=== PATIENT | female | born 1960 | race Caucasian/White ===

== ENCOUNTER 2018-08-09 07:41 | Inpatient (IN) ==
[2018-08-09] MEDS ORDERED: CeFAZolin Syr 2,000MG/20 ML 2,000 MG/20 ML SYRINGE IVPB ONE (08:16)
[2018-08-09] MEDS ORDERED: Albuterol 2.5 MG/3 ML NEBULIZER IH ONE (08:28)
--- NOTE | 2018-08-09 08:28 | Anesthesia Evaluation PreOp ---
Date of Encounter: 08/09/18 Time of Encounter: 08:26 - Past History Planned Operation: Right Mastectomy Cardiac History: HTN Pulmonary History: Former smoker (quit 1 year ago, smoked for 40 years--uses E- cigs) ACCOUNTING GENERALIST History: Denies Any Significant HX Other Medical History: Other (breast CA) Anesthesia History: No Prior Anesthetic Complications, Past Anesthesia Alcohol Use: rarely Drug use: none Medications and Allergies Calcium Carbonate/Vitamin D3 [Calcium 500 + Vit D Caplet] 1 each PO BID #60 tablet 03/03/18 [Rx] LORazepam [Ativan] 1 mg PO Q12H PRN 03/03/18 [History] Lisinopril 2.5 mg PO DAILY 03/16/18 [History] Multivitamin [Multivitamins] 1 each PO DAILY 06/23/18 [History] Anastrozole [Arimidex] 1 mg PO DAILY 90 Days #90 tablet 07/04/18 [Rx] Acetaminophen [Tylenol] 325 mg PO Q6HR PRN 08/09/18 [History] Oxycodone HCl/Acetaminophen [Percocet 7.5-325 mg Tablet] 1 each PO Q6H PRN 08/09/18 [History] Allergy/AdvReac Type Severity Reaction Status Date / Time No Known Allergies Allergy Verified 08/09/18 08:47 - Meds/Allergy Pre-op Review Medications Reviewed: Yes Allergies Reviewed: Yes Beta Blockers on Current Med List: No Anesthesia Results - Imaging EKG: report reviewed (06/30/2018 SINUS RHYTHM POSSIBLE LEFT ATRIAL ENLARGEMENT) Anesthesia Exam O2 Sat Height 1.65 m Height 1.65 m Weight 51.71 kg Weight 51.71 kg O2 Sat by Pulse Oximetry 93 Vital Signs Temp Pulse Resp BP Pulse Ox 97.6 F 65 18 129/83 93 08/09/18 08:50 08/09/18 08:50 08/09/18 08:50 08/09/18 08:50 08/09/18 08:50 Height: 5'5'' Weight: 114 lbs NPO (# of Hours): 8 Pain Scale: 0 Pain Scale Used: Numeric (1 - 10) - HEENT Pupil (Motor): EOMI Mallampati: II Teeth: Poor dentition Oral Opening: Greater than 3 - ACCOUNTING GENERALIST LOC: Oriented ACCOUNTING GENERALIST Motor: Normal RUE, Normal LUE, Normal RLE, Normal LLE, Normal Face ACCOUNTING GENERALIST Sensory: Normal: LUE, RLE, LLE, Face, Deficit: RUE - Cardiac Rhythm: Regular Murmur: None - Pulmonary Breath Sounds: bilateral Clear Respiratory Effort: Symmetrical Anesthesia Assess/Plan ASA Score: 3 Level of consciousness: Cooperative, Oriented, Tranquil Anesthetic Plan: General Monitoring Plan: Standard Monitors Recovery Plan: PACU
[2018-08-09] MEDS ORDERED: Albuterol 2.5 MG/3 ML NEBULIZER ONE (08:30)
[2018-08-09] MEDS ORDERED: Ringers Solution, Lactated 1,000 ML IVC SCH (08:30)
--- NOTE | 2018-08-09 08:47 | History & Physical Report ---
Date of Encounter: 08/09/18 Time of Encounter: 08:47 24 Hour HP Update - Instructions Instructions: If the History and Physical is less than 30 days old and was completed prior to A.M. admission and or procedure and has NOT been updated on calendar day of procedure please complete this update prior to performing procedure. - Update Patient reports changes in Medical Condition: No Changes in examination, assessment, or condition: No Changes in Medication: No Preop tests/diagnostics Reviewed: Yes Pre-Op MRSA Screen: Negative Surgery Remains Indicated: Yes Consent for Planned Operative Procedure(s) Verified: Yes - Pre-Operative Checklist Preoperative Checklist Indicated: No Prophylactic Antibiotic Ordered: Yes Home Medications Include Beta Jose: No Beta Jose Taken Today (Day of Surgery): No Beta Jose Taken Yesterday (Day Prior to Surgery): No Is VTE Prophylaxis Indicated?: NO
[2018-08-09] MEDS ORDERED: Scopolamine Patch 1.5 MG PATCH.TD72 TD ONE (09:20)
[2018-08-09] MEDS ORDERED: Dexamethasone 4 MG/ML VIAL ONE (09:54)
[2018-08-09] MEDS ORDERED: Lidocaine -MPF 2% 2 ML VIAL ONE (09:54)
[2018-08-09] MEDS ORDERED: *HR* Midazolam HCl 2 MG/2 ML VIAL ONE (09:54)
[2018-08-09] MEDS ORDERED: *HR* Rocuronium Bromide 50 MG/5 ML VIAL ONE (09:54)
[2018-08-09] MEDS ORDERED: Ondansetron 4 MG/2 ML VIAL ONE (09:54)
[2018-08-09] MEDS ORDERED: *HR* Propofol 200 MG/20 ML VIAL IVP ONE (09:54)
[2018-08-09] MEDS ORDERED: *HR* FentaNYL (PF) 100 MCG/2 ML VIAL ONE (09:54)
[2018-08-09] MEDS ORDERED: *HR* Promethazine 25 MG/ML VIAL IVP PRN (10:26)
[2018-08-09] MEDS ORDERED: *HR* HYDROmorphone (PF) 1 MG/ML SYRINGE IVP PRN (10:26)
[2018-08-09] MEDS ORDERED: *HR* OxyCODONE/APAP 5/325 TABLET PO PRN (10:26)
[2018-08-09] MEDS ORDERED: Ondansetron 4 MG/2 ML VIAL IVP ONE (10:26)
[2018-08-09] MEDS ORDERED: EPHEDrine 50 MG/ML VIAL ONE (10:33)
[2018-08-09] MEDS ORDERED: *HR* Vasopressin 20 UNIT/ML VIAL ONE (10:36)
--- NOTE | 2018-08-09 11:11 | Operative Note ---
Date of procedure: 08/09/18 Pre-op diagnosis: Right breast cancer, positive margins Post-op diagnosis: same Procedure: Completion right mastectomy Implants: 19 FR Jose x 1 Anesthesia: TARYNA Surgeon: Dayne Atkins Was there an social work assistant present: Yes Nitroglycerin Separator Operator: Candis Cordon Estimated blood loss (cc): 12 Specimen: right breast Condition: stable Disposition: PACU Procedure in Detail: Date of surgery: 08/09/18 After properly identifying the patient, the patient was brought to the operating room and placed in a supine position. After proper IV sedation was achieved followed by general endotracheal intubation, the patient's right breast and axilla were prepped and draped in normal sterile fashion. A timeout was performed noting the patient's name and type of procedure to be performed. Of note the patient had a prior partial mastectomy with excision of the nipple areolar complex, demonstrating residual 1.7 cm cancer with positive margin. Because of the original size of her cancer and her lymph node involvement the decision was made to go ahead and proceed with a mastectomy. A 10 blade scalpel was used to make a oval incision inclusive of the previous incision site extending from the anterior border of the axillary medially towards the sternum. Bovie cauterization was used to dissect down to the dermis and breast parenchyma. The breast parenchyma was then dissected away from the subcutaneous tissue superiorly up towards these clavicle, medially towards the sternum, inferiorly towards the rectus abdominis insertion on the rib cage, and laterally towards the axilla. Bovie cauterization was used to maintain hemostasis during this phase and after this was performed the breast parenchyma was dissected from medial to lateral off the pectoralis major muscle with Bovie cauterization. Once the breast tissue was excised it was cemented to pathology. Bovie cauterization was used to maintain hemostasis within the wound bed and a 10- Urdu Jose drain was placed within the wound and secured with a 2-0 nylon suture. The subcutaneous tissue was then reapproximated with interrupted 3-0 Vicryl sutures and the epidermal and dermal layers were reapproximated with a running 4-0 Monocryl suture. Needle, sponge, and instrument counts were correct 2 and the incision was covered with Steri-Strips and 4 x 4. The patient was aroused from IV sedation, extubated in the operating room without complication, and transported to the recovery room in stable condition.
[2018-08-09] MEDS ORDERED: Ketorolac 30 MG/ML VIAL ONE (11:14)
--- NOTE | 2018-08-09 12:01 | Anesthesia Evaluation Post Op ---
Date of Encounter: 08/09/18 Time of Encounter: 12:00 - Vital Signs Vital Signs: Vital Signs/O2 Sat, Most Current Temp Pulse Resp BP Pulse Ox 97.5 F L 63 13 138/71 96 08/09/18 11:50 08/09/18 11:50 08/09/18 11:50 08/09/18 11:50 08/09/18 11:50 - Lungs Lungs: Clear Ascult./Percussion - Airway Airway: Non-obstructed - Cardiovascular Regular Rate - Mental Status Mental Status: Asleep without brisk response to light stimulation - Pain Pain Scale: 5 Pain Scale used: Numeric (1 - 10) - Nausea Vomiting Nausea Vomiting: Not Present - Hydration Hydration: Ice chips, Has not voided - Discharge PostOp Status: Transfer Patient to floor
[2018-08-09] MEDS ORDERED: MORPHINE SUL Oral CONC 10 MG/0.5 ML ORAL.SYG SL PRN (12:41)
[2018-08-09] MEDS ORDERED: *HR* OxyCODONE/APAP 7.5/325 TABLET PO PRN (12:41)
[2018-08-09] MEDS ORDERED: 0.9 % Sodium Chloride 1,000 ML IVC SCH (12:41)
[2018-08-09] MEDS ORDERED: *HR* LORazepam 1 MG TABLET PO PRN (12:41)
--- NOTE | 2018-08-09 15:14 | Event Note ---
Date of Encounter: 08/09/18 Time of Encounter: 15:13 Patient underwent a right completion mastectomy without any issues. Doing well. Dressing in place. If patient is able to tolerate eating without any nausea or vomiting and tolerated the pain which is oral pain medication that she can be discharged later this afternoon with follow-up in one week.
--- NOTE | 2018-08-09 15:16 | Discharge Summary ---
Orders not resulted at time of discharge: Pending orders 08/09/18 11:06 Surgical Pathology [PTH] Routine Date of Encounter: 08/09/18 Time of Encounter: 15:14 General Surgery Exam Initial Vital Signs Temp Pulse Resp BP Pulse Ox 97.6 F 65 18 129/83 93 08/09/18 08:50 08/09/18 08:50 08/09/18 08:50 08/09/18 08:50 08/09/18 08:50 - Hospital Course Hospital course: Ms. Willis is a 58 year old female with a history of right breast cancer who previously underwent a right partial mastectomy with axillary dissection. Due to positive margins she had a completion mastectomy performed without difficulty. She was discharged later the same day with instructions to follow- up with [facility] in 1 week. Time spent discussing smoking cessation with patient: 3 to 10 minutes - Time Spent with Patient Total time spent providing and/or coordinating discharge services: Less than 30 minutes Specific discharge activities: May remove dressing in two days. May shower in two days. Empty and record JUAN C output daily. [facility] will verify her appointment for next week. - Discharge Medications Prescriptions: OxyCODONE/APAP 7.5/325 [Percocet 7.5/325 MG] 1 each PO Q8HR PRN 7 Days #21 tablet PRN Reason: Pain Home Medications: Calcium Carbonate/Vitamin D3 [Calcium 500 + Vit D Caplet] 1 each PO BID #60 tablet 03/03/18 [Rx] LORazepam [Ativan] 1 mg PO Q12H PRN 03/03/18 [History] Lisinopril 2.5 mg PO DAILY 03/16/18 [History] Multivitamin [Multivitamins] 1 each PO DAILY 06/23/18 [History] Anastrozole [Arimidex] 1 mg PO DAILY 90 Days #90 tablet 07/04/18 [Rx] Acetaminophen [Tylenol] 325 mg PO Q6HR PRN 08/09/18 [History] OxyCODONE/APAP 7.5/325 [Percocet 7.5/325 MG] 1 each PO Q8HR PRN 7 Days #21 tablet 08/09/18 [Rx] Oxycodone HCl/Acetaminophen [Percocet 7.5-325 mg Tablet] 1 each PO Q6H PRN 08/09/18 [History] Allergies/Adverse Reactions: Allergy/AdvReac Type Severity Reaction Status Date / Time No Known Allergies Allergy Verified 08/09/18 08:47 Date of admission: 08/09/18 12:18 Primary care physician: Bernadette Abreu CNP Discharging clinician: Dayne Atkins Anticipated date of discharge: 08/09/18 - Patient Status Disposition: Home, Self-Care Condition: Good Overall status at discharge: patient is progressing back to baseline - Discharge Instructions Instructions: Oxycodone/Acetaminophen (By mouth), [place] Drain Care (DC), Mastectomy (DC), Immediate Post-mastectomy Tissue and Implant Breast Reconstruction (DC) Follow Up With: Bernadette Abreu CNP [Primary Care Provider] - - Diet and Activity Activity: increase activity as tolerated, other Diet: regular diet
[2018-08-09 15:43] VITALS: BP 110/49
[2018-08-09] MEDS ORDERED: ceFAZolin 1,000 MG in Water for inj. (sterile) 20 ML 10 ML IVP SCH (16:00)
[2018-08-10] MEDS ORDERED: Pantoprazole 40 MG VIAL IVP SCH (09:00)
== END 2018-08-09 17:38 | disposition home or self-care (01) | DRG 583 ==
LOC: SAMDAY 07:41 → 3ANU 12:18
PROVIDERS: ADMIT Surgery; ATTEND Surgery